=== PATIENT | female | born 1990 | race Caucasian/White ===

== ENCOUNTER → 2016-05-22 | Outpatient (CLI) | payer OTHER ==
--- NOTE | 2016-05-23 07:10 | XR ---
EXAMINATION TYPE: XR foot complete RT DATE OF EXAM: 05/22/2016 1:53 PM CLINICAL HISTORY: Right foot pain in particular metatarsal pain for 6 months. TECHNIQUE: Frontal, lateral, and oblique images of the right foot are obtained. COMPARISON: None FINDINGS: There is no acute fracture/dislocation evident in the right foot. The joint spaces in the right foot appear within normal limits. There is accessory ossicle at proximal medial base of navicu lar bone or accessory navicular bone noted. The overlying soft tissue appears unremarkable. IMPRESSION: Accessory navicular bone otherwise unremarkable study.
== END | disposition home or self-care (01) ==
LOC: RADXRYALE 13:16
PROVIDERS: ATTEND Internal Medicine
DX: M79.671 Pain in right foot (principal)
CPT/HCPCS: 80053; 80061; 84439; 84443; 85025

== ENCOUNTER → 2016-05-31 | Outpatient (CLI) | payer OTHER ==
--- NOTE | 2016-05-31 08:22 | US ---
EXAMINATION TYPE: US abdomen complete DATE OF EXAM: 05/31/2016 7:18 AM COMPARISON: No previous CLINICAL HISTORY: DR19.7 Diarrhea. Intermittent abdomen pain and diarrhea x 6 months EXAM MEASUREMENTS: Liver Length: 18.3 cm Gallbladder Wall: 0.3 cm CBD: 0.4 cm Spleen: 12.4 cm Right Kidney: 12.1 x 5.6 x 6.2 cm Left Kidney: 11.7 x 5.5 x 5.0 cm TECHNOLOGIST IMPRESSION: Technically difficult and limited study due to patient's body habitus Pancreas: visualized portions wnl, tail limited by overlying midline bowel gas Liver: enlarged at 18.3cm the liver echotexture is coarse. Gallbladder: wnl Evidence for sonographic Banda's sign: yes CBD: visualized portions wnl, limited by overlying bowel gas Spleen: visualized portions wnl, limited by rib shadowing and overlying bowel gas Right Kidney: 0.4cm echogenic focus mid pole Left Kidney: wnl Upper IVC: wnl Abd Aorta: visualized portions wnl, limited by overlying midline bowel gas There is no ascites. The liver is homogenous. The intrahepatic portion of the IVC and proximal abdominal aorta are within normal limits. There is no evidence of cholelithiasis. Common bile duct is unremarkable. The visu alized portions of the pancreas are homogenous. The spleen is unremarkable. Kidneys are symmetric a nd free of hydronephrosis. No renal lesions are seen. IMPRESSION: Correlate for fatty infiltration of the liver. Difficult to exclude small nonobstructive calculus right kidney although findings are indeterminate. Technologist reports a positive sonographi c Banda's sign. Exam is limited.
== END | disposition home or self-care (01) ==
LOC: RADUSWWP 06:50
PROVIDERS: ATTEND Internal Medicine
DX: R19.7 Diarrhea, unspecified (principal)
CPT/HCPCS: 76700

== ENCOUNTER → 2016-06-13 | Outpatient (CLI) | payer OTHER ==
[2016-06-13 14:45] LABS: CH 29.1; CHCM 33.3; HCT 42.3 % (34.0-46.0); HDW 2.34; MCH 28.9 pg (25.0-35.0); MCHC 33.1 g/dL (31.0-37.0); MCV 87.5 fL (80.0-100.0); Mean Platelet Volume 6.5; RBC 4.83 m/uL (3.80-5.40); RDW 12.7 % (11.5-15.5); WBC 14.7 k/uL (3.8-10.6)
[2016-06-13 15:08] LABS: Rheumatoid Factor, Qnt <9 IU/mL (<12)
[2016-06-13 15:09] LABS: C Reactive Protein 13.3 mg/L (<10.0)
[2016-06-13 16:39] LABS: Erythrocyte Sedimentation Rate 18 mm/hr (0-20)
[2016-06-13 21:37] LABS: ANA w/Reflex to Titer NEGATIVE (NEGATIVE)
[2016-06-14 13:41] LABS: HLA B27 NEGATIVE; HLA B27 Comment SEEBELOW
== END | disposition home or self-care (01) ==
LOC: LABWHC1 14:28
PROVIDERS: ATTEND Orthopaedic Surgery
DX: M79.672 Pain in left foot (principal); M79.671 Pain in right foot; R60.9 Edema, unspecified; M25.571 Pain in right ankle and joints of right foot
CPT/HCPCS: 36415; 83520; 84443; 85027; 85652; 86038; 86060; 86140; 86431; 86618; 86812

== ENCOUNTER → 2016-06-27 | Outpatient (CLI) | payer OTHER ==
--- NOTE | 2016-06-29 08:36 | MR ---
MR right foot HISTORY: Pain in right foot multiplanar multisequence imaging through the right foot, patient received 20 cc MultiHance IV Comparison the right foot 22 May 2016 Soft tissue swelling is noted, there is subcutaneous edema present especially at the first digit vola r aspect. The medial aspect of the foot level of the mid diaphysis of the first digit there is a sing le irregularity present possibly susceptibility artifact, correlate with open wound or possibly forei gn body within the skin. There is subcutaneous edema noted as well at the dorsum of the foot peripher ally, and the level of the second digit more distally. Bone marrow signal is within normal limits. Fl exor hallucis musculotendinous junction show some local edema, focal fluid signal within the substanc e of the flexor hallucis longus at the level of the proximal phalangeal head and neck, coronal T2 marissa ge 9 and sagittal STIR image 6 suggests an intrasubstance tear, no retracted tear. Some mild degenera tive change present at the metatarsophalangeal joint of the first digit. Fluid signal is undercutting the plantar base of the first proximal phalanx compatible with normal synovial recess in the absence of injury, sagittal STIR image 5. However, given the adjacent soft tissue swelling, correlate with p hysical exam findings and patient history to exclude a subtle partial tear of the plantar plate. Lisf ranc ligament is intact. Within the calcaneus there is some intermediate mixed signal on T1, increased signal on T2-weighted s equences may represent prominent vascular remnants within the calcaneal body, possibly subchondral ge ode which is incompletely evaluated. No evident abscess. Intermetatarsal bursal effusions between the first through fourth toes. IMPRESSION: Nonspecific soft tissue swelling. Additional findings above. Correlate clinically as desc ribed. Possible skin abnormality as described, correlate.
== END | disposition home or self-care (01) ==
LOC: RADMRIMAIN 19:30
PROVIDERS: ATTEND Orthopaedic Surgery
DX: M79.672 Pain in left foot (principal); M79.671 Pain in right foot; M25.571 Pain in right ankle and joints of right foot; R60.9 Edema, unspecified
CPT/HCPCS: 73720; A9577

== ENCOUNTER → 2016-06-28 | Outpatient (CLI) | payer OTHER ==
--- NOTE | 2016-06-29 08:06 | MR ---
EXAMINATION TYPE: MR ankle RT wo/w con DATE OF EXAM: 06/28/2016 8:33 PM COMPARISON: NONE HISTORY: Pain in Right ankle and joint of right mathew CONTRAST: Standard multiplanar, multisequence MRI departmental protocol utilizing 20 mL intravenous MultiHance gadolinium contrast. FINDINGS: Within the anterior portion of the os calcis there is a mixed signal T2 lesion which is of predominantly increased signal on T1-weighted imaging and fails to enhance following the administrati on of contrast. There is no evidence for expansion or cortical disruption. The findings are nonspecif ic however could reflect intraosseous ganglion cyst, atypical lipoma. The bone cyst and giant cell tu mor. BE unlikely. No additional calcaneal lesions are seen. The ankle mortise is intact. Achilles ten don has a normal appearance. Medial and lateral tendinous groups are intact. Osseous structures are o therwise of normal signal without evidence for fracture or additional osseous lesion. IMPRESSION: Nonspecific lesion of the right os calcis.
== END | disposition home or self-care (01) ==
LOC: RADMRIMAIN 19:30
PROVIDERS: ATTEND Orthopaedic Surgery
DX: M89.8X7 Other specified disorders of bone, ankle and foot (principal); M25.571 Pain in right ankle and joints of right foot; R60.9 Edema, unspecified; M79.671 Pain in right foot; M79.672 Pain in left foot
CPT/HCPCS: 73723; A9577

== ENCOUNTER 2018-11-23 16:02 | Emergency (ER) | payer OTHER ==
[2018-11-23 16:24] VITALS: BP 113/74; PULSE 74; RESP 18; TEMP 98.8
--- NOTE | 2018-11-23 17:03 | ED ---
General Adult HPI - General Chief complaint: Extremity Injury, Lower Stated complaint: rt leg swelling Time Seen by Provider: 11/23/18 16:25 Source: patient, family, RN notes reviewed Mode of arrival: ambulatory Limitations: no limitations - History of Present Illness Initial comments: Chief complaint and history of present illness a 28-year-old female here with her significant other. The patient reports she has tenderness and discomfort to her medial right thigh. The patient reports she's recently started treatment for a repeat MRSA infection to her left cheek. She's been resting it for several days. Patient's weight she may have a clot in the right leg. She also has had a chronic issue with low back discomfort no new injuries. She has had sciatic distribution discomfort in the past. No difficulties urinating or bowel movements. No rashes no direct injury. - Related Data Home Medications Medication Instructions Recorded Confirmed Acetaminophen Tab [Tylenol Tab] 1,000 mg PO Q6H PRN 11/23/18 11/23/18 Ibuprofen [Motrin Ib] 400 mg PO Q6H PRN 11/23/18 11/23/18 L.acidoph,Paracasei, B.lactis 1 cap PO BID 11/23/18 11/23/18 [Probiotic] Multivitamins, Thera [Multivitamin 1 tab PO HS 11/23/18 11/23/18 (formulary)] Sulfamethox-Tmp 800-160Mg [Bactrim 1 tab PO Q12H 11/23/18 11/23/18 DS 800-160 mg] Allergies Allergy/AdvReac Type Severity Reaction Status Date / Time ketorolac [From Toradol] Allergy Itching Verified 11/23/18 16:56 Penicillins Allergy Swelling Verified 11/23/18 16:56 Review of Systems ROS Statement: Those systems with pertinent positive or pertinent negative responses have been documented in the HPI. Review of systems. Patient denies any headache no visual acuity changes she has discomfort to her left cheek where she has a MRSA infection currently being treated with Bactrim. Denies sore throat no neck pain no chest pain no shortness of breath no abdominal pain. She has chronic low back discomfort. She reports a history of sciatic discomfort. No numbness no tingling to the leg. Full motion of upper and lower extremities no joint pain. All systems reviewed. Past medical problems significant irritable bowel syndrome, currently not a problem. Her surgeries include tonsils and adenoids she's had multiple I&D's for her MRSA infections she's had an EGD and a colonoscopy. Family history significant for a mother who had lymphoma father had skin cancers of unknown t ype. The patient has ALLERGIES to ketorolac caused a rash and penicillins which she cannot remember she was young that time. The patient does smoke strongly encouraged to stop she denies alcohol use. ROS Other: All systems not noted in ROS Statement are negative. Past Medical History Past Medical History: Osteoarthritis (OA) Additional Past Medical History / Comment(s): IBS History of Any Multi-Drug Resistant Organisms: MRSA Date of last positivie culture/infection: 11/21/18 Past Surgical History: Adenoidectomy, Tonsillectomy Additional Past Surgical History / Comment(s): multiple I&D, EGD colonoscopy Past Psychological History: Anxiety, Bipolar Smoking Status: Current every day smoker Past Alcohol Use History: None Reported Past Drug Use History: None Reported General Exam - General Exam Comments Initial Comments: General: The patient is awake and alert, here with her discomfort to her anterior right thigh. Mildly increases with palpation decreases with the muscle flexed and palpation. Vital signs show temperature of 98.8 pulse 74 respiratory rate 18 pulse ox 98% room air blood pressure 113/74. Eye: Pupils are equal, round and reactive to light, extra-ocular movements are intact; there is normal conjunctiva bilaterally. No signs of icterus. Ears, nose, mouth and throat: There are moist mucous membranes and no oral lesions. MRSA infection left cheek. Currently being treated with Bactrim. Neck: The neck is supple, there is no tenderness, no anterior cervical lymphadenopathy appreciated. Cardiovascular: There is a regular rate and rhythm. No murmur, rub or gallop is appreciated. Respiratory: Lungs are clear to auscultation, respirations are non-labored, breath sounds are equal. No wheezes, stridor, rales, or rhonchi. Gastrointestinal: Soft, non-distended, non-tender abdomen without masses or organomegaly noted. There is no rebound or guarding present. No CVA tenderness. Bowel sounds are unremarkable. Back: No rashes no complaint of discomfort other than chronic low back pain nothing increased. States she has had sciatic distribution discomfort in the past. Denies numbness or tingling to her lower extremities. Musculoskeletal: Normal ROM, no tenderness, There is no pedal edema. There is no calf tenderness or swelling. Sensation intact. Pulses equal bilaterally 2+. Mild tenderness deep palpation to the soft tissue in the proximal thigh radiating from the anterior right thigh to the medial aspect of the right knee. Neurological: No focal or lateralizing findings Skin: Skin is warm and dry and no rashes or lesions are noted. Psychiatric: Cooperative,. Limitations: no limitations Course Vital Signs 11/23/18 16:17 Temperature 98.8 F Pulse Rate 74 Respiratory 18 Rate Blood Pressure 113/74 O2 Sat by Pulse 98 Oximetry Medical Decision Making - Medical Decision Making Decision making; the patient is here because of discomfort to her proximal right thigh as noted in the history and review of systems. Examination was negative for any significant bruising swelling or pathology related to the leg. Patient requested an ultrasound of the leg to rule out DVT this was performed no DVT was noted. The plant this time the patient keep leg elevated increase her general movement as she's been sitting still for 3 days because of discomfort to her cheek which she is being treated for MRSA infection. Patient advised to do gentle exercises and ordered exercise or lower back we did discuss possibility of mild sciatic irritation causing discomfort and hand. The patient will be advised to take ibuprofen 600 mg for pain. The patient has an ALLERGY to ketorolac but she has taken ibuprofen without any adverse effects. Patient was told to follow-up with family doctor as needed. Return emergency room if the pain gets worse sheis a swelling etc. Medical decision making; the patient had an ultrasound of her right leg to rule out DVT. Radiologist's impression is no evidence for DVT in the right lower extremity image from groin to the upper calf. As read by Dr. Ybarra. Disposition Clinical Impression: Acute pain of right thigh Disposition: HOME SELF-CARE Condition: Fair Instructions (If sedation given, give patient instructions): Musculoskeletal Pain (ED) Additional Instructions: Gently move the leg and lower back. Take ibuprofen as directed, 600 mg every 6 hours, for pain. Alternate heat and ice to lower back. Report any changes to emergency room otherwise follow-up with family doctor Is patient prescribed a controlled substance at d/c from ED?: No Referrals: None,Stated [Primary Care Provider] - 1-2 days Time of Disposition: 17:47
--- NOTE | 2018-11-23 17:26 | US ---
EXAMINATION TYPE: US venous doppler duplex LE RT DATE OF EXAM: 11/23/2018 5:15 PM COMPARISON: NONE CLINICAL HISTORY: 28-year-old female Right thigh pain. Right leg pain. SIDE PERFORMED: Right TECHNIQUE: The lower extremity deep venous system is examined utilizing real time linear array sonog luana with graded compression, doppler sonography and color-flow sonography. FINDINGS: VESSELS IMAGED: External Iliac Vein (EIV) Common Femoral Vein Deep Femoral Vein Greater Saphenous Vein * Femoral Vein Popliteal Vein Small Saphenous Vein * Proximal Calf Veins (* superficial vessels) Right Leg: Negative for DVT IMPRESSION: No evidence for DVT within the right lower extremity imaged from the groin to the upper calf.
== END 2018-11-23 18:46 | disposition home or self-care (01) ==
LOC: EC 16:02
DX: M79.651 Pain in right thigh (principal); G89.29 Other chronic pain; M54.5 Low back pain; A49.02 Methicillin resistant Staphylococcus aureus infection, unspecified site; F17.200 Nicotine dependence, unspecified, uncomplicated; Z88.0 Allergy status to penicillin; Z88.6 Allergy status to analgesic agent; Z87.39 Personal history of other diseases of the musculoskeletal system and connective tissue
CPT/HCPCS: 99283

== ENCOUNTER → 2019-10-21 | Outpatient (CLI) | payer BC ==
--- NOTE | 2019-11-06 19:53 | EM ---
EVENT MONITOR Patient was monitored between 10/20 and 11/03/2019. The rhythm strip revealed sinus mechanism with episode of sinus tachycardia. There was one episode of 3 wide-complex tachycardia noted on 10/31/2019. Symptoms of irregular beat or flutter correlated with sinus mechanism. MMTONI / FRANKLINN: [id number] /
== END | disposition home or self-care (01) ==
LOC: RADECHMAIN 12:24
PROVIDERS: ATTEND Family Medicine
DX: R00.0 Tachycardia, unspecified (principal)
CPT/HCPCS: 93270

== ENCOUNTER 2020-01-14 01:43 | Inpatient (IN) | payer BC ==
[2020-01-14] MEDS ORDERED: HYDROmorphone 0.5 MG/0.5 ML SYRINGE IVP STA (02:08)
[2020-01-14] MEDS ORDERED: ONDANSETRON 4 MG/2 ML VIAL IVP STA (02:08)
--- NOTE | 2020-01-14 02:16 | ED ---
Abdominal Pain HPI - General Chief Complaint: Abdominal Pain Stated Complaint: Rt flank pain Time Seen by Provider: 01/14/20 01:54 Source: patient Mode of arrival: ambulatory Limitations: no limitations - History of Present Illness MD Complaint: abdominal pain Onset/Timin -: hour(s) Location: RUQ Radiation: none Migration to: no migration Severity: severe Quality: stabbing, burning Consistency: colicky Improves With: nothing Worsens With: nothing Associated Symptoms: nausea, vomiting - Related Data Home Medications Medication Instructions Recorded Confirmed Acetaminophen Tab [Tylenol] 1,000 mg PO Q6H PRN 11/23/18 01/15/20 Ibuprofen [Motrin Ib] 800 mg PO Q6H PRN 11/23/18 01/15/20 Omeprazole 20 mg PO DAILY 01/14/20 01/15/20 Allergies Allergy/AdvReac Type Severity Reaction Status Date / Time egg Allergy Nausea & Verified 01/15/20 10:50 Vomiting ketorolac [From Toradol] Allergy Itching Verified 01/15/20 10:50 Penicillins Allergy Swelling Verified 01/15/20 10:50 Review of Systems ROS Statement: Those systems with pertinent positive or pertinent negative responses have been documented in the HPI. ROS Other: All systems not noted in ROS Statement are negative. Constitutional: Reports: chills. Denies: fever Respiratory: Denies: cough, dyspnea Cardiovascular: Denies: chest pain, palpitations, edema Gastrointestinal: Reports: abdominal pain, nausea, vomiting. Denies: diarrhea, constipation, hematemesis, melena, hematochezia Genitourinary: Denies: dysuria, frequency, hematuria Musculoskeletal: Denies: back pain Skin: Denies: rash Neurological: Denies: headache, weakness, numbness Past Medical History Past Medical History: Osteoarthritis (OA) Additional Past Medical History / Comment(s): IBS, gallstones History of Any Multi-Drug Resistant Organisms: MRSA Date of last positivie culture/infection: 11/21/18 Past Surgical History: Adenoidectomy, Tonsillectomy Additional Past Surgical History / Comment(s): multiple I&D, EGD colonoscopy Past Psychological History: Anxiety, Bipolar Past Alcohol Use History: None Reported Past Drug Use History: None Reported - Past Family History Father Family Medical History: Myocardial Infarction ([place]) Additional Family Medical History / Comment(s): 3 MIs with 1st while in his 50s. Bowel perforation, back surgery then complication of staph infection. Mother Family Medical History: Cancer, Diabetes Mellitus Additional Family Medical History / Comment(s): Nonhodgkins lymphoma. General Exam Limitations: no limitations General appearance: alert, in no apparent distress Head exam: Present: atraumatic, normocephalic Eye exam: Present: normal appearance. Absent: scleral icterus, conjunctival injection Neck exam: Present: normal inspection Respiratory exam: Present: normal lung sounds bilaterally. Absent: respiratory distress, wheezes, rales, rhonchi, stridor Cardiovascular Exam: Present: regular rate, normal rhythm, normal heart sounds. Absent: systolic murmur, diastolic murmur, rubs, gallop GI/Abdominal exam: Present: soft, tenderness (right upper quadrant tenderness), normal bowel sounds. Absent: distended, guarding, rebound, rigid, mass, pulsatile mass, hernia Extremities exam: Present: normal inspection, normal capillary refill. Absent: pedal edema, calf tenderness Back exam: Present: normal inspection. Absent: CVA tenderness (R), CVA tenderness (L) Neurological exam: Present: alert Skin exam: Present: warm, dry, intact, normal color. Absent: rash Course Vital Signs 01/14/20 01/14/20 01/14/20 01:48 02:41 05:44 Temperature 99 F Pulse Rate 88 96 66 Respiratory 16 20 18 Rate Blood Pressure 177/88 140/61 114/55 O2 Sat by Pulse 95 97 98 Oximetry Medical Decision Making - Lab Data Result diagrams: 01/15/20 09:23 01/15/20 09:23 Lab Results 01/14/20 01/14/20 01/14/20 Range/Units 02:22 02:22 04:10 WBC 17.9 H (3.8-10.6) k/uL RBC 4.76 (3.80-5.40) m/uL Hgb 14.0 (11.4-16.0) gm/dL Hct 41.7 (34.0-46.0) % MCV 87.7 (80.0-100.0) fL MCH 29.4 (25.0-35.0) pg MCHC 33.5 (31.0-37.0) g/dL RDW 12.7 (11.5-15.5) % Plt Count 351 (150-450) k/uL Neutrophils % 76 % Lymphocytes % 17 % Monocytes % 4 % Eosinophils % 1 % Basophils % 1 % Neutrophils # 13.6 H (1.3-7.7) k/uL Lymphocytes # 3.1 (1.0-4.8) k/uL Monocytes # 0.7 (0-1.0) k/uL Eosinophils # 0.2 (0-0.7) k/uL Basophils # 0.1 (0-0.2) k/uL Sodium 137 (137-145) mmol/L Potassium 4.3 (3.5-5.1) mmol/L Chloride 104 (98-107) mmol/L Carbon Dioxide 23 (22-30) mmol/L Anion Gap 10 mmol/L BUN 14 (7-17) mg/dL Creatinine 0.74 (0.52-1.04) mg/dL Est GFR (CKD-EPI)AfAm >90 (>60 ml/min/1.73 sqM) Est GFR (CKD-EPI)NonAf >90 (>60 ml/min/1.73 sqM) Glucose 120 H (74-99) mg/dL Calcium 9.8 (8.4-10.2) mg/dL Total Bilirubin 0.5 (0.2-1.3) mg/dL AST 21 (14-36) U/L ALT 16 (4-34) U/L Alkaline Phosphatase 67 (38-126) U/L Total Protein 7.6 (6.3-8.2) g/dL Albumin 4.3 (3.5-5.0) g/dL Amylase 63 (30-110) U/L Lipase 136 (23-300) U/L Urine Color Yellow Urine Appearance Cloudy H (Clear) Urine pH 5.5 (5.0-8.0) Ur Specific [place] 1.030 (1.001-1.035) Urine Protein Trace H (Negative) Urine Glucose (UA) Negative (Negative) Urine Ketones Negative (Negative) Urine Blood Trace H (Negative) Urine Nitrite Negative (Negative) Urine Bilirubin Negative (Negative) Urine Urobilinogen <2.0 (<2.0) mg/dL Ur Leukocyte Esterase Moderate H (Negative) Urine RBC 1 (0-5) /hpf Urine WBC 6 H (0-5) /hpf Ur Squamous Epith Cells 4 (0-4) /hpf Urine Bacteria Many H (None) /hpf Urine Mucus Few H (None) /hpf Urine HCG, Qual (Not Detectd) 01/14/20 Range/Units 04:10 WBC (3.8-10.6) k/uL RBC (3.80-5.40) m/uL Hgb (11.4-16.0) gm/dL Hct (34.0-46.0) % MCV (80.0-100.0) fL MCH (25.0-35.0) pg MCHC (31.0-37.0) g/dL RDW (11.5-15.5) % Plt Count (150-450) k/uL Neutrophils % % Lymphocytes % % Monocytes % % Eosinophils % % Basophils % % Neutrophils # (1.3-7.7) k/uL Lymphocytes # (1.0-4.8) k/uL Monocytes # (0-1.0) k/uL Eosinophils # (0-0.7) k/uL Basophils # (0-0.2) k/uL Sodium (137-145) mmol/L Potassium (3.5-5.1) mmol/L Chloride (98-107) mmol/L Carbon Dioxide (22-30) mmol/L Anion Gap mmol/L BUN (7-17) mg/dL Creatinine (0.52-1.04) mg/dL Est GFR (CKD-EPI)AfAm (>60 ml/min/1.73 sqM) Est GFR (CKD-EPI)NonAf (>60 ml/min/1.73 sqM) Glucose (74-99) mg/dL Calcium (8.4-10.2) mg/dL Total Bilirubin (0.2-1.3) mg/dL AST (14-36) U/L ALT (4-34) U/L Alkaline Phosphatase (38-126) U/L Total Protein (6.3-8.2) g/dL Albumin (3.5-5.0) g/dL Amylase (30-110) U/L Lipase (23-300) U/L Urine Color Urine Appearance (Clear) Urine pH (5.0-8.0) Ur Specific [place] (1.001-1.035) Urine Protein (Negative) Urine Glucose (UA) (Negative) Urine Ketones (Negative) Urine Blood (Negative) Urine Nitrite (Negative) Urine Bilirubin (Negative) Urine Urobilinogen (<2.0) mg/dL Ur Leukocyte Esterase (Negative) Urine RBC (0-5) /hpf Urine WBC (0-5) /hpf Ur Squamous Epith Cells (0-4) /hpf Urine Bacteria (None) /hpf Urine Mucus (None) /hpf Urine HCG, Qual Not Detected (Not Detectd) Disposition Clinical Impression: Abdominal pain, Acute cholecystitis Disposition: ADMITTED IP TO THIS HOSP Condition: Fair
[2020-01-14 02:31] LABS: Basophils # (A) 0.1 k/uL (0-0.2); Basophils % (A) 1 %; Eosinophils # (A) 0.2 k/uL (0-0.7); Eosinophils % (A) 1 %; HCT 41.7 % (34.0-46.0); Lymphocytes # (A) 3.1 k/uL (1.0-4.8); Lymphocytes % (A) 17 %; MCH 29.4 pg (25.0-35.0); MCHC 33.5 g/dL (31.0-37.0); MCV 87.7 fL (80.0-100.0); Mean Platelet Volume 6.6; Monocytes # (A) 0.7 k/uL (0-1.0); Monocytes % (A) 4 %; Neutrophils # (A) 13.6 k/uL (1.3-7.7); Neutrophils % (A) 76 %; Platelet Count 351 k/uL (150-450); RBC 4.76 m/uL (3.80-5.40); RDW 12.7 % (11.5-15.5); WBC 17.9 k/uL (3.8-10.6)
[2020-01-14] MEDS ORDERED: fentaNYL (PF) 50 MCG/ML 2 ML AMP IVP STA (02:33)
[2020-01-14 02:40] LABS: ALT 16 U/L (4-34); AST 21 U/L (14-36); African American GFR (CKD) >90 (>60 ml/min/1.73 sqM); Albumin 4.3 g/dL (3.5-5.0); Alkaline Phosphatase 67 U/L (38-126); Amylase 63 U/L (30-110); Anion Gap 10 mmol/L; Blood Urea Nitrogen 14 mg/dL (7-17); Calcium 9.8 mg/dL (8.4-10.2); Carbon Dioxide 23 mmol/L (22-30); Chloride 104 mmol/L (98-107); Glucose 120 mg/dL (74-99); Lipase 136 U/L (23-300); Non-African American GFR(CKD) >90 (>60 ml/min/1.73 sqM); Potassium 4.3 mmol/L (3.5-5.1); Sodium 137 mmol/L (137-145); Total Bilirubin 0.5 mg/dL (0.2-1.3); Total Protein 7.6 g/dL (6.3-8.2)
[2020-01-14 04:21] LABS: Appearance,Urine Cloudy (Clear); Bacteria,Urine Many /hpf; Bilirubin,Urine Negative (Negative); Blood,Urine Trace (Negative); Color,Urine Yellow; Glucose,Urine (UA) Negative (Negative); Ketones,Urine Negative (Negative); Leukocyte Esterase,Urine Moderate (Negative); Mucus,Urine Few /hpf; Nitrite,Urine Negative (Negative); PH, Urine 5.5 (5.0-8.0); Protein,Urine Trace (Negative); RBC,Urine 1 /hpf (0-5); Squamous Epithelial Cell,Urine 4 /hpf (0-4); Urobilinogen,Urine <2.0 mg/dL (<2.0); WBC,Urine 6 /hpf (0-5)
--- NOTE | 2020-01-14 04:40 | US ---
EXAM: US Abdomen Complete CLINICAL HISTORY: ITS.REASON US Reason: attention RUQ TECHNIQUE: Real-time ultrasound of the abdomen with image documentation. COMPARISON: No relevant prior studies available. FINDINGS: Liver: The liver measures 19.6 cm with mildly increased echogenicity suggesting mild fatty infiltration. No focal liver lesion is seen. No intrahepatic bile duct dilation. Gallbladder: There are several shadowing stones within the gallbladder dependently. There is mild gallbladder wall thickening measuring up to 5 mm and mild dilation of the gallbladder. Sonographic Banda sign is positive suggesting acute cholecystitis. Common bile duct: Unremarkable as visualized. No stones. No dilation. Pancreas: Unremarkable as visualized. Kidneys: The right kidney measures 12 x 5 cm with normal appearance. No hydronephrosis. No stones. Spleen: Unremarkable. No splenomegaly. Aorta: Unremarkable. No aneurysm. Inferior vena cava: Unremarkable. IMPRESSION: There are several shadowing stones within the gallbladder dependently. There is mild gallbladder wall thickening measuring up to 5 mm and mild dilation of the gallbladder. Sonographic Banda sign is positive suggesting acute cholecystitis.
[2020-01-14] MEDS ORDERED: NALOXONE 0.4 MG/ML 1 ML VIAL IV PRN (05:07)
[2020-01-14] MEDS ORDERED: fentaNYL (PF) 50 MCG/ML 2 ML AMP IVP PRN (05:10)
[2020-01-14] MEDS ORDERED: CEFEPIME 2 GM in SODIUM CHLORIDE 0.9% 100 ML IVPB STA (05:11)
[2020-01-14] MEDS: SODIUM CHLORIDE 0.9% 1,000 ML IV SCH ×3 (05:43→22:46)
[2020-01-14] MEDS: ONDANSETRON 4 MG/2 ML VIAL IVP PRN ×3 (06:52→20:39)
[2020-01-14] MEDS: HYDROmorphone 1 MG/ML 1 ML SYRINGE IVP PRN ×3 (08:38→18:45)
[2020-01-14] MEDS: PANTOPRAZOLE 40 MG/10 ML VIAL IV SCH (08:44)
--- NOTE | 2020-01-14 11:07 | P.GSHP ---
History of Present Illness H&P Date: 01/14/20 CHIEF COMPLAINT: Right upper quadrant abdominal pain HISTORY OF PRESENT ILLNESS: This is a 29-year-old female with a known history of gallstones, IBS, GERD, cardiac arrhythmia osteoarthritis. Patient presents to the emergency room with a 2 day history of right upper quadrant abdominal pain with severe vomiting. Patient reports that her symptoms did start after eating [employer]. She had been vomiting excessively and did note some blood in her emesis. She denies any fever, chills or sweats. Denies any change in stools. Denies any urinary symptoms. PAST MEDICAL HISTORY: See list. PAST SURGICAL HISTORY: See list. MEDICATIONS: See list. ALLERGIES: See list. SOCIAL HISTORY: No illicit drug use. REVIEW OF SYSTEMS: CONSTITUTIONAL: Denies fever or chills. HEENT: Denies blurred vision, vision changes, or eye pain. Denies hemoptysis CARDIOVASCULAR: Denies chest pain or pressure. RESPIRATORY: No shortness of breath. GASTROINTESTINAL: See HPI for pertinent findings HEMATOLOGIC: Denies bleeding disorders. GENITOURINARY: Denies any blood in urine or increased urinary frequency. SKIN: Denies pruitis. Denies rash. PHYSICAL EXAM: VITAL SIGNS: Reviewed GENERAL: Well-developed in no acute distress. HEENT: No sclera icterus. Extraocular movements grossly intact. Moist buccal mucosa. Head is atraumatic, normocephalic. No nasal drainage. ABDOMEN: Soft. Right upper quadrant and epigastric tenderness with palpation. Nondistended NEUROLOGIC: Alert and oriented. Cranial nerves II through XII grossly intact. LABORATORY DATA: WBC 17.9 hemoglobin 14.0 platelets 351 LFTs normal lipase 136 IMAGING: Abdominal ultrasound there are several shadowing stones within the gallbladder dependently. There is mild gallbladder wall thickening measuring up to 5 mm and mild dilation of the gallbladder. Positive Banda sign Urinalysis moderate leukocyte esterase WBC 6 ASSESSMENT: 1. Acute cholecystitis 2. Right upper quadrant abdominal pain PLAN: -Planning for laparoscopic cholecystectomy later today with Dr. Bazzi -Keep patient nothing by mouth -Continue IV fluids -Continue Dilaudid IV as needed for pain -Check EKG patient has history of arrhythmia -Consult medicine for medical management Physician Financial Services Associate note has been reviewed by physician. Signing provider agrees with the documented findings, assessment, and plan of care. 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 History of Any Multi-Drug Resistant Organisms: MRSA Date of last positivie culture/infection: 2019 MDRO Source:: face Past Surgical History: Adenoidectomy, Tonsillectomy Additional Past Surgical History / Comment(s): multiple I&D of MRSA/staph wounds, EGD, colonoscopy Additional Past Anesthesia/Blood Transfusion Reaction / Comment(s): Pt states she woke quickly after colonoscopy Smoking Status: Former smoker - Past Family History Father Family Medical History: Myocardial Infarction ([place]) Additional Family Medical History / Comment(s): 3 MIs with 1st while in his 50s. Bowel perforation, back surgery then complication of staph infection. Mother Family Medical History: Cancer, Diabetes Mellitus Additional Family Medical History / Comment(s): Nonhodgkins lymphoma. Medications and Allergies Home Medications Medication Instructions Recorded Confirmed Type Acetaminophen Tab [Tylenol Tab] 1,000 mg PO Q6H PRN 11/23/18 01/14/20 History Ibuprofen [Motrin Ib] 800 mg PO Q6H PRN 11/23/18 01/14/20 History Omeprazole 20 mg PO DAILY 01/14/20 01/14/20 History Allergies Allergy/AdvReac Type Severity Reaction Status Date / Time egg Allergy Nausea & Verified 01/14/20 06:15 Vomiting ketorolac [From Toradol] Allergy Itching Verified 01/14/20 06:15 Penicillins Allergy Swelling Verified 01/14/20 06:15 Surgical - Exam Vital Signs Temp Pulse Resp BP Pulse Ox 99 F 88 16 177/88 95 01/14/20 01:48 01/14/20 01:48 01/14/20 01:48 01/14/20 01:48 01/14/20 01:48 Results - Labs 01/14/20 02:22 01/14/20 02:22 Abnormal Lab Results - Last 24 Hours (Table) 01/14/20 01/14/20 01/14/20 Range/Units 02:22 02:22 04:10 WBC 17.9 H (3.8-10.6) k/uL Neutrophils # 13.6 H (1.3-7.7) k/uL Glucose 120 H (74-99) mg/dL Urine Appearance Cloudy H (Clear) Urine Protein Trace H (Negative) Urine Blood Trace H (Negative) Ur Leukocyte Esterase Moderate H (Negative) Urine WBC 6 H (0-5) /hpf Urine Bacteria Many H (None) /hpf Urine Mucus Few H (None) /hpf Diabetes panel 01/14/20 Range/Units 02:22 Sodium 137 (137-145) mmol/L Potassium 4.3 (3.5-5.1) mmol/L Chloride 104 (98-107) mmol/L Carbon Dioxide 23 (22-30) mmol/L BUN 14 (7-17) mg/dL Creatinine 0.74 (0.52-1.04) mg/dL Glucose 120 H (74-99) mg/dL Calcium 9.8 (8.4-10.2) mg/dL AST 21 (14-36) U/L ALT 16 (4-34) U/L Alkaline Phosphatase 67 (38-126) U/L Total Protein 7.6 (6.3-8.2) g/dL Albumin 4.3 (3.5-5.0) g/dL Calcium panel 01/14/20 Range/Units 02:22 Calcium 9.8 (8.4-10.2) mg/dL Albumin 4.3 (3.5-5.0) g/dL Pituitary panel 01/14/20 Range/Units 02:22 Sodium 137 (137-145) mmol/L Potassium 4.3 (3.5-5.1) mmol/L Chloride 104 (98-107) mmol/L Carbon Dioxide 23 (22-30) mmol/L BUN 14 (7-17) mg/dL Creatinine 0.74 (0.52-1.04) mg/dL Glucose 120 H (74-99) mg/dL Calcium 9.8 (8.4-10.2) mg/dL Adrenal panel 01/14/20 Range/Units 02:22 Sodium 137 (137-145) mmol/L Potassium 4.3 (3.5-5.1) mmol/L Chloride 104 (98-107) mmol/L Carbon Dioxide 23 (22-30) mmol/L BUN 14 (7-17) mg/dL Creatinine 0.74 (0.52-1.04) mg/dL Glucose 120 H (74-99) mg/dL Calcium 9.8 (8.4-10.2) mg/dL Total Bilirubin 0.5 (0.2-1.3) mg/dL AST 21 (14-36) U/L ALT 16 (4-34) U/L Alkaline Phosphatase 67 (38-126) U/L Total Protein 7.6 (6.3-8.2) g/dL Albumin 4.3 (3.5-5.0) g/dL
[2020-01-14 11:19] VITALS: BMI 50.2
[2020-01-14] MEDS: LEVOFLOXACIN 500MG-D5W PMX 500 MG in DEXTROSE/WATER 1 100ML.BAG IVPB SCH (17:10)
[2020-01-14] MEDS: ACETAMINOPHEN TAB 325 MG TAB PO PRN (18:46)
[2020-01-14] MEDS: metroNIDAZOLE-NS PMX 500 MG in SALINE 1 100ML.BAG IVPB SCH ×2 (18:47→23:44)
--- NOTE | 2020-01-14 22:22 | P.CONS ---
History of Present Illness - Reason for Consult Consult date: 01/14/20 Medical management - Chief Complaint Abdominal pain - History of Present Illness Patient is a 29-year-old female with a known history of GERD, osteoarthritis, history of gallstones and benign colonic polyps, previous history of smoking quit 5 months ago came to ER with the complaints of abdominal pain x2 days. Patient is having right upper quadrant abdominal pain associated with nausea and vomiting. Denied any fever or chills. Patient reports that her symptoms started after she ate at [employer]. Denied any hematemesis or melena. No dysuria or hematuria. Laboratory data showed WBC 17.9, hemoglobin 14.0, platelets 351 Sodium 137, potassium 4.3, chloride 104 and BUN 14 creatinine 0.74 Urinalysis is cloudy with moderate leukocyte esterase and 6 WBCs. Ultrasound abdomen showed there are several shadowing stones within the gallbladder dependently. There is mild gallbladder wall thickening measuring up to 5 mm and mild dilation of the gallbladder. Sonographic Banda sign is posit wilfrid., Suggesting acute cholecystitis. Review of Systems Constitutional: Patient denies any fever or chills . No generalized weakness or weight loss. Abdomen: Patient does have nausea vomiting and right upper quadrant abdominal pain. No diarrhea.. Cardiovascular: Patient denies any chest pain or short of breath no palpitations. Respiratory: patient denied any cough or sputum production. No shortness of breath Neurologic: Patient denied any numbness or tingling headache. Musculoskeletal: Patient denies any complaints of joint swelling or deformity. Skin: Negative Psychiatric: Negative Endocrine: No heat or cold intolerance. No recent weight gain. Genitourinary: No dysuria or hematuria. 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 History of Any Multi-Drug Resistant Organisms: MRSA Year Discovered:: 2019 MDRO Source:: face Past Surgical History: Adenoidectomy, Tonsillectomy Additional Past Surgical History / Comment(s): multiple I&D of MRSA/staph wounds, EGD, colonoscopy Additional Past Anesthesia/Blood Transfusion Reaction / Comm: Pt states she woke quickly after colonoscopy Smoking Status: Former smoker - Past Family History Father Family Medical History: Myocardial Infarction ([place]) Additional Family Medical History / Comment(s): 3 MIs with 1st while in his 50s. Bowel perforation, back surgery then complication of staph infection. Mother Family Medical History: Cancer, Diabetes Mellitus Additional Family Medical History / Comment(s): Nonhodgkins lymphoma. Medications and Allergies Home Medications Medication Instructions Recorded Confirmed Type Acetaminophen Tab [Tylenol Tab] 1,000 mg PO Q6H PRN 11/23/18 01/14/20 History Ibuprofen [Motrin Ib] 800 mg PO Q6H PRN 11/23/18 01/14/20 History Omeprazole 20 mg PO DAILY 01/14/20 01/14/20 History Allergies Allergy/AdvReac Type Severity Reaction Status Date / Time egg Allergy Nausea & Verified 01/14/20 06:15 Vomiting ketorolac [From Toradol] Allergy Itching Verified 01/14/20 06:15 Penicillins Allergy Swelling Verified 01/14/20 06:15 Physical Exam Vitals: Vital Signs Temp Pulse Pulse Resp BP BP Pulse Ox 01/14/20 08:45 98.4 F 75 18 123/69 74 L 01/14/20 05:44 66 18 114/55 98 01/14/20 02:41 96 20 140/61 97 01/14/20 01:48 99 F 88 16 177/88 95 Intake and Output 01/13/20 01/14/20 01/14/20 22:59 06:59 14:59 Other: Weight 158.757 kg 158.757 kg PHYSICAL EXAMINATION: Patient is lying in the bed comfortably, no acute distress, awake alert and oriented.. HEENT: Normocephalic. Neck is supple. Pupils reactive. Nostrils clear. Oral cavity is moist. Ears reveal no drainage. Neck reveals no JVD, carotid bruits, or thyromegaly. CHEST EXAMINATION: Trachea is central. Symmetrical expansion. Lung patricio clear to auscultation and percussion. CARDIAC: Normal S1, S2 with no gallops. No murmurs ABDOMEN: Soft. Right upper quadrant tenderness. Bowel sounds normal. No organomegaly. No abdominal bruits. Extremities: reveal no edema. No clubbing or cyanosis Neurologically awake, alert, oriented x3 with well-coordinated movements. No focal deficits noted Skin: No rash or skin lesions. Psychiatric: Coperative. Nonsuicidal Musculoskeletal: No joint swelling or deformity. Normal range of motion. Results CBC & Chem 7: 01/14/20 02:22 01/14/20 02:22 Labs: Abnormal Lab Results - Last 24 Hours (Table) 01/14/20 01/14/20 01/14/20 Range/Units 02:22 02:22 04:10 WBC 17.9 H (3.8-10.6) k/uL Neutrophils # 13.6 H (1.3-7.7) k/uL Glucose 120 H (74-99) mg/dL Urine Appearance Cloudy H (Clear) Urine Protein Trace H (Negative) Urine Blood Trace H (Negative) Ur Leukocyte Esterase Moderate H (Negative) Urine WBC 6 H (0-5) /hpf Urine Bacteria Many H (None) /hpf Urine Mucus Few H (None) /hpf Assessment and Plan Assessment: Acute cholecystitis Nausea vomiting and right upper quadrant abdominal pain secondary to above Leukocytosis GERD Osteoarthritis History of gallstones, Benign colonic polyps Previous history of smoking DVT prophylaxis. Plan: Patient will be continued on IV hydration and pain management. Will start on antibiotics and follow-up closely. General surgery is planning for cholecystectomy. Monitor CBC and BMP tomorrow. Further recommendations based on clinical course. Thank you for your consult.
[2020-01-15] MEDS: HYDROmorphone 1 MG/ML 1 ML SYRINGE IVP PRN ×4 (01:59→18:04)
[2020-01-15] MEDS: SODIUM CHLORIDE 0.9% 1,000 ML IV SCH (06:14)
[2020-01-15] MEDS: metroNIDAZOLE-NS PMX 500 MG in SALINE 1 100ML.BAG IVPB SCH ×2 (08:41→16:40)
[2020-01-15] MEDS: PANTOPRAZOLE 40 MG/10 ML VIAL IV SCH ×2 (08:42→08:48)
[2020-01-15] MEDS: ONDANSETRON 4 MG/2 ML VIAL IVP PRN (08:49)
[2020-01-15 09:46] LABS: Basophils % (A) 0 %; Eosinophils # (A) 0.2 k/uL (0-0.7); Eosinophils % (A) 2 %; HCT 36.2 % (34.0-46.0); HGB 11.6 gm/dL (11.4-16.0); Lymphocytes # (A) 3.2 k/uL (1.0-4.8); Lymphocytes % (A) 33 %; MCH 29.1 pg (25.0-35.0); MCV 90.8 fL (80.0-100.0); Monocytes # (A) 0.6 k/uL (0-1.0); Monocytes % (A) 6 %; Neutrophils # (A) 5.7 k/uL (1.3-7.7); Neutrophils % (A) 58 %; Platelet Count 272 k/uL (150-450); RBC 3.99 m/uL (3.80-5.40); RDW 12.6 % (11.5-15.5); WBC 9.8 k/uL (3.8-10.6)
[2020-01-15 09:55] LABS: African American GFR (CKD) >90 (>60 ml/min/1.73 sqM); Anion Gap 4 mmol/L; Blood Urea Nitrogen 14 mg/dL (7-17); Calcium 8.4 mg/dL (8.4-10.2); Carbon Dioxide 28 mmol/L (22-30); Chloride 107 mmol/L (98-107); Glucose 96 mg/dL (74-99); Non-African American GFR(CKD) 83 (>60 ml/min/1.73 sqM); Potassium 4.1 mmol/L (3.5-5.1); Sodium 139 mmol/L (137-145)
[2020-01-15] MEDS ORDERED: IV FLUID CONTINUATION 1,000 ML IV ONE (10:42)
[2020-01-15] MEDS ORDERED: BUPIVACAINE (PF) 0.25% 30 ML VIAL SQ ONE (12:35)
[2020-01-15] MEDS ORDERED: LACTATED RINGERS 1,000 ML IV ONE (13:10)
--- NOTE | 2020-01-15 13:16 | P.OP ---
Date of Procedure: 01/15/20 Preoperative Diagnosis: Cholecystitis Postoperative Diagnosis: Cholecystitis Procedure(s) Performed: Laparoscopic cholecystectomy Anesthesia: CHARU Surgeon: Ruy Bazzi Pathology: other (gall bladder) Condition: stable Disposition: PACU Description of Procedure: The patient was placed on the operating table. The patient received a general endotracheal tube anesthesia. The patients abdomen was prepped and draped in the usual sterile fashion. Through an infraumbilical stab incision, the fascia of the anterior abdominal wall was grasped with a pair of Kochers and then the Veress needle was placed in the peritoneal cavity. Position of the Veress needle was confirmed with positive drop test. The abdomen was then insufflated. After adequate insufflation, the 10 mm trocar was placed in the peritoneal cavity. Following this the laparoscope was placed in the peritoneal cavity. The patient was placed in the head-up, right side up position and then a 5 mm trocar was placed in the right lateral and right subcostal position under direct visualization. A 8 mm trocar was placed in the epigastric position. The gallbladder was grasped in the fundus and infundibulum. Traction on the gallbladder was placed in the lateral and the cephalad positions. The triangle of Calot was visualized.. The cystic duct was bluntly dissected until the union of the cystic duct and common bile duct was seen. A critical view of safety was achieved. The cystic duct was then divided and sealed with the Harmonic scissors. A PDS Endoloop was then placed throughout the cystic duct stump. The cystic artery divided and sealed with the Harmonic scissors. The gallbladder was then removed from the liver bed using Harmonic scissors. The gallbladder was then extracted through the epigastric port site. Operative field was checked for any bleeding spots and Harmonic scissors was used to coagulate the liver bed. The abdomen was irrigated. The trocars were removed. The skin was closed using interrupted 3-0 Vicryl suture. Dermabond dressing were applied. The patient tolerated the procedure well.
[2020-01-15] MEDS ORDERED: HYDROmorphone 1 MG/ML 1 ML SYRINGE IVP PRN (13:17)
[2020-01-15] MEDS ORDERED: fentaNYL (PF) 50 MCG/ML 2 ML AMP IVP ONE ×2 (13:30→13:49)
[2020-01-15] MEDS ORDERED: MIDAZOLAM 2 MG/2 ML VIAL IVP ONE ×2 (13:30→13:54)
[2020-01-15] MEDS ORDERED: diphenhydrAMINE 50 MG/ML 1 ML VIAL IVP ONE (13:45)
[2020-01-15] MEDS: LEVOFLOXACIN 500MG-D5W PMX 500 MG in DEXTROSE/WATER 1 100ML.BAG IVPB SCH (17:59)
[2020-01-15] MEDS: ACETAMINOPHEN TAB 325 MG TAB PO PRN (18:04)
--- NOTE | 2020-01-15 22:45 | P.PN ---
Subjective Progress Note Date: 01/15/20 Patient is a 29-year-old female with a known history of GERD, osteoarthritis, history of gallstones and benign colonic polyps, previous history of smoking quit 5 months ago came to ER with the complaints of abdominal pain x2 days. Patient is having right upper quadrant abdominal pain associated with nausea and vomiting. Denied any fever or chills. Patient reports that her symptoms started after she ate at [employer]. Denied any hematemesis or melena. No dysuria or hematuria. Laboratory data showed WBC 17.9, hemoglobin 14.0, platelets 351 Sodium 137, potassium 4.3, chloride 104 and BUN 14 creatinine 0.74 Urinalysis is cloudy with moderate leukocyte esterase and 6 WBCs. Ultrasound abdomen showed there are several shadowing stones within the gallbladder dependently. There is mild gallbladder wall thickening measuring up to 5 mm and mild dilation of the gallbladder. Sonographic Banda sign is positive., Suggesting acute cholecystitis. 01/15/2020 Patient is currently sitting on the side of the bed. Complains of abdominal pain. Patient had laparoscopic cholecystectomy today. No complaints of fever. No chest pain or shortness breath. No dizziness or lightheadedness. Leukocytosis resolved. Patient is being continued on antibiotics of Levaquin and Flagyl. Current medications reviewed. Objective - Vital Signs Vital signs: Vital Signs Temp 98.5 F 01/15/20 08:38 Pulse 72 01/15/20 09:00 Resp 16 01/15/20 09:00 BP 114/64 01/15/20 08:38 Pulse Ox 96 01/15/20 08:38 Intake & Output 01/14/20 01/15/20 01/15/20 18:59 06:59 18:59 Intake Total 1528 480 Output Total 2 200 Balance 1526 -200 480 Weight 158.757 kg Intake: Intake, IV Titration 1048 Amount Sodium Chloride 0.9% 1, 1048 000 ml @ 130 mls/hr IV . Q7H42M [facility] Rx#:[id number] Oral 480 480 Output: Urine 2 200 Other: Voiding Method Toilet Toilet # Voids 2 - Exam PHYSICAL EXAMINATION: Patient is lying in the bed comfortably, no acute distress, awake alert and oriented.. HEENT: Normocephalic. Neck is supple. Pupils reactive. Nostrils clear. Oral cavity is moist. Ears reveal no drainage. Neck reveals no JVD, carotid bruits, or thyromegaly. CHEST EXAMINATION: Trachea is central. Symmetrical expansion. Lung patricio clear to auscultation and percussion. CARDIAC: Normal S1, S2 with no gallops. No murmurs ABDOMEN: Soft. mild Right upper quadrant tenderness. Bowel sounds normal. No organomegaly. No abdominal bruits. Extremities: reveal no edema. No clubbing or cyanosis Neurologically awake, alert, oriented x3 with well-coordinated movements. No focal deficits noted Skin: No rash or skin lesions. Psychiatric: Coperative. Nonsuicidal Musculoskeletal: No joint swelling or deformity. Normal range of motion. - Labs CBC & Chem 7: 01/15/20 09:23 01/15/20 09:23 Labs: Microbiology - Last 24 Hours (Table) 01/14/20 04:10 Urine Culture - Preliminary Urine,Clean Catch Assessment and Plan Assessment: Acute cholecystitis. Status post laparoscopic cholecystectomy. POD 0 Nausea vomiting and right upper quadrant abdominal pain secondary to above Leukocytosis GERD Osteoarthritis History of gallstones, Benign colonic polyps Previous history of smoking DVT prophylaxis. Plan: Patient will be continued on IV hydration and pain management. c/w antibiotics and follow-up closely. s/p cholecystectomy. Monitor CBC and BMP tomorrow. Further recommendations based on clinical course. Time with Patient: Greater than 30
[2020-01-16] MEDS: HYDROmorphone 1 MG/ML 1 ML SYRINGE IVP PRN ×3 (00:08→08:07)
[2020-01-16] MEDS: SODIUM CHLORIDE 0.9% 1,000 ML IV SCH ×4 (00:12→10:17)
[2020-01-16] MEDS: metroNIDAZOLE-NS PMX 500 MG in SALINE 1 100ML.BAG IVPB SCH ×2 (02:03→08:08)
[2020-01-16] MEDS: ACETAMINOPHEN TAB 325 MG TAB PO PRN (03:23)
[2020-01-16 08:03] VITALS: BP 122/76; PULSE 64; RESP 16; TEMP 98.4
[2020-01-16] MEDS ORDERED: DOCUSATE 100 MG CAP PO SCH (09:30)
--- NOTE | 2020-01-16 12:07 | P.PN ---
Subjective 29-year-old female with a known history of GERD, osteoarthritis, history of gallstones and benign colonic polyps, previous history of smoking quit 5 months ago came to ER with the complaints of abdominal pain x2 days. Patient is having right upper quadrant abdominal pain associated with nausea and vomiting. Denied any fever or chills. Patient reports that her symptoms started after she ate at [employer]. Denied any hematemesis or melena. No dysuria or hematuria. Laboratory data showed WBC 17.9, hemoglobin 14.0, platelets 351 Sodium 137, potassium 4.3, chloride 104 and BUN 14 creatinine 0.74 Urinalysis is cloudy with moderate leukocyte esterase and 6 WBCs. Ultrasound abdomen showed there are several shadowing stones within the gallb ladder dependently. There is mild gallbladder wall thickening measuring up to 5 mm and mild dilation of the gallbladder. Sonographic Banda sign is positive., Suggesting acute cholecystitis. 01/15/2020 Patient is currently sitting on the side of the bed. Complains of abdominal pain. Patient had laparoscopic cholecystectomy today. No complaints of fever. No chest pain or shortness breath. No dizziness or lightheadedness. Leukocytosis resolved. Patient is being continued on antibiotics of Levaquin and Flagyl. 01/16/2020 From medical perspective I cannot completely rule out that patient doesn't have urinary tract infection patient received couple days of antibiotics for UTI patient may need 1 more day of levofloxacin. I'll leave the decision of continuation of antibiotics for cholecystitis to general surgery. Patient can be discharged from medical perspective patient is bit constipated not passing gas yet, recommended her OTC or prescription medications for constipation.IV fluids were discontinued Constitutional: Denied any fatigue denied any fever. Cardio vascular: denied any chest pain, palpitations Gastrointestinal denied any nausea vomiting Pulmonary: Denied any shortness of breath cough Neurologic denied any new focal deficits All inpatient medications were reviewed and appropriate changes in these medications as dictated in the interval history and assessment and plan. Objective - Vital Signs Vital signs: Vital Signs Temp 98.4 F 01/16/20 08:02 Pulse 64 01/16/20 08:02 Resp 16 01/16/20 09:00 BP 122/76 01/16/20 08:02 Pulse Ox 97 01/16/20 08:02 Intake & Output 01/15/20 01/16/20 01/16/20 18:59 06:59 18:59 Intake Total 1880 615 180 Output Total 15 500 Balance 1865 115 180 Intake: IV 1400 Oral 480 615 180 Output: Urine 500 Estimated Blood Loss 15 Other: Voiding Method Toilet Toilet Toilet # Voids 1 0 - Exam PHYSICAL EXAMINATION: GENERAL: The patient is alert and oriented x3, not in any acute distress. obese HEENT: Pupils are round and equally reacting to light. EOMI. No scleral icterus. No conjunctival pallor. Normocephalic, atraumatic. No pharyngeal erythema. No t hyromegaly. CARDIOVASCULAR: S1 and S2 present. No murmurs, rubs, or gallops. PULMONARY: Chest is clear to auscultation, no wheezing or crackles. ABDOMEN: Soft, nontender, nondistended, normoactive bowel sounds. No palpable organomegaly. surgical site areas appear to be clean MUSCULOSKELETAL: No joint swelling or deformity. EXTREMITIES: No cyanosis, clubbing, or pedal edema. NEUROLOGICAL: Gross neurological examination did not reveal any focal deficits. SKIN: No rashes. - Labs CBC & Chem 7: 01/15/20 09:23 01/15/20 09:23 Labs: Microbiology - Last 24 Hours (Table) 01/14/20 04:10 Urine Culture - Final Urine,Clean Catch Assessment and Plan Plan: Acute cholecystitis. Status post laparoscopic cholecystectomy. POD 1 possibility of urinary tract infection that cannot be completely ruled out will need or day of antibiotic can continue levofloxacin for 1 more day if she is being discharged. GERD obesity Plan: as mentioned in the interval history
[2020-01-16] MEDS ORDERED: HYDROcodone/APAP 5-325MG 1 EACH TAB PO PRN (12:53)
--- NOTE | 2020-01-16 14:36 | P.DS ---
Providers Date of admission: 01/16/20 08:38 Expected date of discharge: 01/16/20 Attending physician: Ruy Bazzi Consults: 01/14/20 10:58 Consult Physician Routine Consulting Provider: Sly Bishop Consult Reason/Comments: medical management Do you want consulting provider notified?: Yes Primary care physician: Aparna Berrios Hospital Course: Discharge diagnosis 1. Acute cholecystitis status post laparoscopic cholecystectomy Hospital course This is a 29-year-old female with a known history of gallstones, IBS, GERD, cardiac arrhythmia osteoarthritis. Patient presents to the emergency room with a 2 day history of right upper quadrant abdominal pain with severe vomiting. Patient reports that her symptoms did start after eating [employer]. Abdominal ultrasound there are several shadowing stones within the gallbladder dependently. There is mild gallbladder wall thickening measuring up to 5 mm and mild dilation of the gallbladder. Positive Banda sign. And she had elevated white count. Patient was treated for acute cholecystitis and is now status post laparoscopic cholecystectomy. Patient tolerated surgery well. She is tolerating diet. She is afebrile. Her pain is controlled. She is up and ambulating. She is stable for discharge home. Please refer to chart for any further details. Physician Boat Cleaning Supervisor note has been reviewed by physician. Signing provider agrees with the documented findings, assessment, and plan of care. Patient Condition at Discharge: Stable Plan - Discharge Summary Discharge Rx Participant: No New Discharge Prescriptions: New Docusate [Colace] 100 mg PO BID #30 capsule Hydrocodone/Acetaminophen [[place] 5-325] 1 tab PO Q4HR PRN 3 Days #18 tab PRN Reason: Pain Continue Ibuprofen [Motrin Ib] 800 mg PO Q6H PRN PRN Reason: Pain Omeprazole 20 mg PO DAILY Discontinued Acetaminophen Tab [Tylenol] 1,000 mg PO Q6H PRN PRN Reason: Pain Discharge Medication List Ibuprofen [Motrin Ib] 800 mg PO Q6H PRN 11/23/18 [History] Omeprazole 20 mg PO DAILY 01/14/20 [History] Docusate [Colace] 100 mg PO BID #30 capsule 01/16/20 [Rx] Hydrocodone/Acetaminophen [[place] 5-325] 1 tab PO Q4HR PRN 3 Days #18 tab 01/16/20 [Rx] Follow up Appointment(s)/Referral(s): Aparna Berrios III, MD [Primary Care Provider] - 1-2 days Ruy Bazzi MD [STAFF PHYSICIAN] - 1 Week Activity/Diet/Wound Care/Special Instructions: No driving while taking [place] No lifting over 10 pounds You may shower. No soaking or tub baths Very light activity until you are reevaluated at your follow up appointment with your surgeon Diet Low fat Discharge Disposition: HOME SELF-CARE
[2020-01-16] MEDS ORDERED: LEVOFLOXACIN 500 MG TAB PO SCH (16:00)
[2020-01-16] MEDS ORDERED: metroNIDAZOLE 500 MG TAB PO SCH (16:00)
[2020-01-17] MEDS ORDERED: PANTOPRAZOLE 40 MG TABLET PO SCH (07:30)
== END 2020-01-16 15:40 | disposition home or self-care (01) | DRG 418 ==
LOC: EC 01:43 → 3NCARDOBS 05:08 → OBSVTOIN 01-16 08:38
PROVIDERS: ADMIT Surgery; ATTEND Surgery
PROC: 0FT44ZZ Resection of Gallbladder, Percutaneous Endoscopic Approach (ICD-10-PCS; principal; 2020-01-15 11:10)
DX: K80.00 Calculus of gallbladder with acute cholecystitis without obstruction (principal); N39.0 Urinary tract infection, site not specified; F31.9 Bipolar disorder, unspecified; K21.9 Gastro-esophageal reflux disease without esophagitis; K57.90 Diverticulosis of intestine, part unspecified, without perforation or abscess without bleeding; K58.1 Irritable bowel syndrome with constipation; K59.00 Constipation, unspecified; M19.90 Unspecified osteoarthritis, unspecified site; Z79.899 Other long term (current) drug therapy; Z87.891 Personal history of nicotine dependence; Z86.14 Personal history of Methicillin resistant Staphylococcus aureus infection; Z90.89 Acquired absence of other organs; Z86.010 Personal history of colon polyps; Z98.890 Other specified postprocedural states; Z88.0 Allergy status to penicillin; Z88.6 Allergy status to analgesic agent; Z91.012 Allergy to eggs; Z82.49 Family history of ischemic heart disease and other diseases of the circulatory system; Z83.79 Family history of other diseases of the digestive system; Z83.1 Family history of other infectious and parasitic diseases; Z83.3 Family history of diabetes mellitus; Z80.7 Family history of other malignant neoplasms of lymphoid, hematopoietic and related tissues; Z80.9 Family history of malignant neoplasm, unspecified
CPT/HCPCS: 36415; 76705; 80048; 80053; 81001; 81025; 82150; 83690; 85025; 87086; 88304; 96365; 96375; 96376; 99285

== ENCOUNTER → 2020-11-11 | Outpatient (CLI) | payer BC ==
--- NOTE | 2020-11-11 12:00 | XR ---
EXAMINATION TYPE: XR chest 2V DATE OF EXAM: 11/11/2020 COMPARISON: None INDICATION: Sarcoidosis TECHNIQUE: Frontal and lateral views of the chest are obtained. FINDINGS: The heart size is normal. The pulmonary vasculature is normal. The lungs are clear. IMPRESSION: 1. No acute pulmonary process.
== END | disposition home or self-care (01) ==
LOC: LABWHC1 09:29
PROVIDERS: ATTEND Dermatology
DX: D86.3 Sarcoidosis of skin (principal)
CPT/HCPCS: 36415; 71046; 82164; 82310